=== PATIENT | male | born 1985 | race Caucasian/White ===

== ENCOUNTER 2016-10-11 15:19 | Emergency (ER) | payer SELFPAY ==
--- NOTE | 2016-10-11 15:30 | ER Document Report ---
ED Medical Screen (RME) - General Stated Complaint: COUGH,SHORTNESS OF BREATH Mode of Arrival: Ambulatory Information source: Patient Notes: Patient with cold symptoms for the past week. Patient states cough has worsened recently. Patient complains of right lateral rib. Patient complains of voice hoarseness. hx: None I have greeted and performed a rapid initial assessment of this patient. A comprehensive ED assessment and evaluation of the patient, analysis of test results and completion of the medical decision making process will be conducted by additional ED providers. TRAVEL OUTSIDE OF THE [place] IN LAST 30 DAYS: No Past Medical History Neurological Medical History: Reports: Hx Migraine Physical Exam - Vital signs Vitals: Temp Pulse Resp BP Pulse Ox 98.2 F 100 20 128/70 H 94 10/11/16 15:25 10/11/16 15:25 10/11/16 15:25 10/11/16 15:25 10/11/16 15:25 - Respiratory Respiratory status: No respiratory distress Breath sounds: Productive cough - Occasionally productive Notes: Patient with voice hoarseness Course - Vital Signs Vital signs: Temp Pulse Resp BP Pulse Ox 98.2 F 100 20 128/70 H 94 10/11/16 15:25 10/11/16 15:25 10/11/16 15:25 10/11/16 15:25 10/11/16 15:25
--- NOTE | 2016-10-11 17:54 | ER Document Report ---
ED General - General Chief Complaint: Cough Stated Complaint: COUGH,SHORTNESS OF BREATH Mode of Arrival: Ambulatory Information source: Patient Notes: Patient is a 31-year-old white male who presents with one-week history of productive cough (clear sputum), loss of voice, hoarseness, nasal congestion, pain in ribs, back pain and throat pain. He states the pain in his rib and back are worse after coughing. He states he has tried home cough medications without relief. He denies any fever, chills, wheezing, chest pain, vomiting or diarrhea. Endorses sick contact at home. He is a smoker, one pack per day. TRAVEL OUTSIDE OF THE [place] IN LAST 30 DAYS: No - Related Data Allergies/Adverse Reactions: iodine Allergy (Verified 10/11/16 15:30) tomato Allergy (Verified 10/11/16 15:30) Past Medical History - General Information source: Patient - Social History Smoking Status: Current Every Day Smoker Chew tobacco use (# tins/day): No Frequency of alcohol use: None Drug Abuse: None Family History: Reviewed & Not Pertinent Patient has suicidal ideation: No Patient has homicidal ideation: No Neurological Medical History: Reports: Hx Migraine Renal/ Medical History: Denies: Hx Peritoneal Dialysis Review of Systems - Review of Systems Constitutional: See HPI EENT: No symptoms reported Cardiovascular: No symptoms reported Respiratory: See HPI Gastrointestinal: No symptoms reported Genitourinary: No symptoms reported Male Genitourinary: No symptoms reported Musculoskeletal: No symptoms reported Skin: No symptoms reported Hematologic/Lymphatic: No symptoms reported Neurological/Psychological: No symptoms reported Physical Exam - Vital signs Vitals: Temp Pulse Resp BP Pulse Ox 98.2 F 100 20 128/70 H 94 10/11/16 15:25 10/11/16 15:25 10/11/16 15:25 10/11/16 15:25 10/11/16 15:25 Interpretation: Hypertensive - Notes Notes: PHYSICAL EXAM: CONSTITUTIONAL: Alert and oriented, well-appearing and in no acute distress. Speaking in full sentences without difficulty. HENT: Normocephalic, atraumatic. Ear canals without erythema or foreign body, TMs pearly grove with good bony landmarks. Nares clear without erythema, septal hematoma or deviation, airway patent. Oropharynx erythematous without tonsilar exudate or malocclusion. Trachea midline. Uvula midline. Moist mucous membranes. EYES: Pupils equal round and reactive to light, EOM intact. Sclera anicteric, conjunctiva are normal. No entrapment. NECK: supple without lymphadenopathy. ROM intact. HEART: Regular rate and rhythm without murmurs. LUNGS: Breath sounds equal. Scattered rhonchi noted but no wheezes, rales. Bilateral anterior ribs tender to palpation without crepitus or deformity. EXTREMITIES: Normal range of motion, no pitting edema. No cyanosis. Cap Refill < 3 seconds. SKIN: Warm and dry. Normal turgor. No rashes or lesions noted. Course - Re-evaluation Re-evalutation: 10/11/16 18:01 Patient seen and examined. Vital signs stable, no respiratory distress, patient speaking in full sentences. Voice is hoarse. Rhonchi noted bilaterally throughout but no wheezing and breath sounds are throughout. Exam consistent with laryngitis and bronchitis. Chest x-ray negative for acute infiltrate or opacity. Discussed supportive care treatments with patient including smoking cessation. Given scripts for antibiotic, cough suppressant, steroids. Discharge home in stable condition and follow-up with primary care doctor. - Vital Signs Vital signs: Temp Pulse Resp BP Pulse Ox 98.2 F 100 20 128/70 H 94 10/11/16 15:25 10/11/16 15:25 10/11/16 15:25 10/11/16 15:25 10/11/16 15:25 - Laboratory Laboratory results interpreted by nc: Rapid strep negative - Diagnostic Test Radiology reviewed: Image reviewed, Reports reviewed Radiology results interpreted by me: 10/11/16 18:01 Chest x-ray negative for acute opacity or infiltrate. Discharge - Discharge Clinical Impression: Bronchitis, Laryngitis URI (upper respiratory infection) Qualifiers: URI type: unspecified URI Qualified Code(s): J06.9 - Acute upper respiratory infection, unspecified Condition: Stable Disposition: HOME, SELF-CARE Additional Instructions: UPPER RESPIRATORY ILLNESS: You have a viral infection of the respiratory passages -- a "cold." This common infection causes nasal congestion, drainage, and often sore throat and cough. It is highly contagious. The disease usually lasts about 10 to 14 days. There is no "cure" for the viral infection -- it must run its course. If there is a complication, such as bacterial infection in the nose, sinuses, middle ear, or bronchial tubes, antibiotics may be required. The antibiotics won't affect the virus. Drink plenty of fluids. A humidifier may help. An expectorant medication or decongestant may make you more comfortable. Use acetaminophen or ibuprofen for fever or aches. See the doctor if fever persists over two days, if there is any significant worsening of your symptoms, or if you simply fail to improve as expected. BRONCHOSPASM: You have tightness in the bronchial tubes, called bronchospasm. This often occurs with bronchial infections. Allergies, inhaled chemicals, and polluted or cold air can also provoke bronchospasm. It's more likely in patients with asthma in the family. Emergency treatment of bronchospasm may include adrenaline shots or bronchodilator aerosol. You may feel lightheaded and have a rapid pulse for an hour or two. Rest and get plenty of fluids. At home, we'll treat you with a bronchodilator inhaler. Antibiotics and corticosteroids may be required for some patients. Until you recover, avoid chemical fumes, dusts, pollens, and exercising in very cold or dry air. If you smoke, stop now!! If you develop a fever, increased wheezing, chest pain, or severe shortness of breath, you should contact the doctor immediately. DECONGESTANT MEDICATION: A decongestant medicine has been prescribed. Often this medicine is combined in the same tablet with an antihistamine or expectorant. This type of medicine is helpful in treating a bad cold or sinus condition, as well as in treatment of the nasal congestion of hay fever. It is not of much benefit for lung infections. Decongestant medicines are related to stimulants. They can cause an increase in blood pressure and heart rate. Persons with heart disease and high blood pressure should not take decongestants without discussing this with the physician. If you develop palpitations, chest pain, headache, or tremors, stop the medicine and consult your physician. COUGH-SUPPRESSANT & EXPECTORANT MEDICATION: You are to use a cough medication as needed for relief of symptoms. This medicine is a combination of an expectorant (to make the mucous thinner and more easily "coughed up") and a cough suppressant (to reduce the frequency of coughing). The cough-suppressant medicine is related to narcotics. You may experience mild nausea and sleepiness. Some patients who are very sensitive to narcotics may have stomach pain from this medicine. Taking the medicine with food reduces these side effects. Do not drive or work with machinery until you know how this medicine affects you. The expectorant should have no side effects. Iodine-containing expectorants (such as organidin) should not be taken by persons with active thyroid disease unless approved by your doctor. Call the doctor if you develop shortness of breath, hives, rash, itching, lightheadedness, or severe nausea and vomiting. INHALED BRONCHODILATORS: You have received a treatment of and/or prescription for an inhaled bronchodilator -- a medication which stimulates the airways in the lung to dilate. This improves the flow of air in asthma, bronchitis, and emphysema. These medicines have some similarity to adrenaline, and can cause similar side effects: shakiness, racing heart, and a sense of nervousness. These side effects decrease with time. Contact your doctor if these side effects are severe. Do not over-use the medicine. Too-frequent use of the inhaler may make it ineffective. Call your doctor if the inhaler is not controlling your symptoms at the prescribed doses. STEROID MEDICATION: You have been given an injection of or oral medicine of the cortisone/ steroid class. This medication is used to control inflammation or allergy. Vito t is usually only given for a short period of time, until the acute process subsides. There are usually no side effects from short-term use of cortisone-like medications. Some persons feel an increased sense of well-being and are not sleepy at bedtime. Long-term use of cortisone medications is best avoided, unless required for a severe condition. If your condition does not remit, or relapses after the course of corticosteroid medication, you should consult your physician. Antibiotic Therapy You have been given an antibiotic prescription. It's important that you take all the medication, unless instructed otherwise by your physician. Failure to complete the entire course can result in relapse of your condition. Common side effects of antibiotics include nausea, intestinal cramping, or diarrhea. Women may develop vaginal yeast infections, and babies can get yeast (thrush) in the mouth following the use of antibiotics. Contact your physician if you develop significant side effects from this medication. Allergy to this antibiotic can result in hives, wheezing, faintness, or itching. If symptoms of allergy occur, stop the medication and call the doctor. USE OF ACETAMINOPHEN (Tylenol): Acetaminophen may be taken for pain relief or fever control. It's much safer than aspirin, offering a wider range of "safe" dosages. It is safe during . Some brand names are Tylenol, Panadol, Datril, Anacin 3, Tempra, and Liquiprin. Acetaminophen can be repeated every four hours. The following are maximum recommended dosages: >89 pounds or adults 650 mg to 900 mg Acetaminophen can be repeated every four hours. Maximum dose not to exceed 4000 mg a day. SMOKING: If you smoke, you should stop smoking. The tar and chemicals in cigarette smoke are harmful. Smoking has been shown to cause: emphysema chronic bronchitis lung cancer mouth and throat cancer stomach and pancreas cancer premature aging defects In addition, smoking increases ear and lung infections in children of smokers. FOLLOW-UP CARE: If you have been referred to a physician for follow-up care, call the physician s office for an appointment as you were instructed or within the next two days. If you experience worsening or a significant change in your symptoms, notify the physician immediately or return to the Emergency Department at any time for re-evaluation. Prescriptions: Guaifenesin/Codeine Phosphate [Guaifenesin-Codeine Syrup] 5 ml PO QHS #30 ml Guaifenesin/D-Methorphan Hb [Guaifenesin-Dextromethorph Tab] 1 each PO Q12HP PRN #8 tab.sr.12h PRN Reason: Cough Albuterol Sulfate [Proair HFA Inhalation Aerosol 8.5 gm MDI] 2 puff IH Q4H PRN # 1 mdi PRN Reason: Azithromycin [Zithromax 250 mg Tablet] 250 mg PO ASDIR PRN #6 tablet PRN Reason: Naproxen [Naprosyn 250 mg Tablet] 250 mg PO DAILY PRN #14 tablet PRN Reason: Prednisone [Deltasone 20 mg Tablet] 3 tab PO DAILY 5 Days Forms: Elevated Blood Pressure, Smoking Cessation Education, Return to Work
[2016-10-11 18:09] VITALS: BP 142/83
== END 2016-10-11 18:13 | disposition home or self-care (01) ==
LOC: ER 15:19
DX: J04.0 Acute laryngitis (principal); J40 Bronchitis, not specified as acute or chronic; R09.81 Nasal congestion; R07.81 Pleurodynia; M54.9 Dorsalgia, unspecified; R07.0 Pain in throat; R09.89 Other specified symptoms and signs involving the circulatory and respiratory systems; F17.200 Nicotine dependence, unspecified, uncomplicated
CPT/HCPCS: 71020; 87070; 87077; 87880; 99283

== ENCOUNTER 2016-11-27 04:56 | Emergency (ER) | payer SELFPAY ==
[2016-11-27] MEDS ORDERED: DIPHENHYDRAMINE HCL 50 MG/ML VIAL IV ONE (05:30)
[2016-11-27] MEDS ORDERED: METOCLOPRAMIDE HCL INJ/PF 10 MG/2 ML SDV IM ONE (05:30)
[2016-11-27] MEDS ORDERED: KETOROLAC TROMETHAMINE 60 MG/2 ML SDV IM ONE (05:30)
--- NOTE | 2016-11-27 06:11 | ER Document Report ---
ED Headache - General Chief Complaint: Headache Stated Complaint: HEADACHE Mode of Arrival: Medic Information source: Patient, Relative TRAVEL OUTSIDE OF THE [place] IN LAST 30 DAYS: No - HPI Patient complains to provider of: Headache Notes: Patient arrives with complaints of headache. He states that he has had this headache for the last 3 days. Patient has a history of migraines, he states this feels like his normal migraines aside from the length of time. He denies any falls or head injuries. He denies any blood thinners. He denies any blurred or loss vision. He does complain of some photophobia and nausea associated with this. No vomiting or diarrhea. No chest pain or shortness of breath. No neck stiffness. No rash. He states that occasionally his right hand feels tingly but he denies any actual numbness or weakness. He denies any numbness to her weakness to the legs. States that the headache is been constant although varying in intensity. States that it started on the left side of his head and now is on the right side of his head. Not positional. It is worse if he coughs. He was seen 2 years ago for headache and had a head CT at that time which was unremarkable. This was not a sudden onset thunderclap headache, gradual headache that feels similar to prior migraines. - Related Data Allergies/Adverse Reactions: iodine Allergy (Verified 10/11/16 15:30) tomato Allergy (Verified 10/11/16 15:30) Past Medical History - Social History Smoking Status: Never Smoker Frequency of alcohol use: None Drug Abuse: Marijuana Family History: Reviewed & Not Pertinent Neurological Medical History: Reports: Hx Migraine Renal/ Medical History: Denies: Hx Peritoneal Dialysis Surgical Hx: Negative - Immunizations Hx Diphtheria, Pertussis, Tetanus Vaccination: Yes Review of Systems - Review of Systems -: Yes All other systems reviewed and negative Physical Exam - Vital signs Vitals: Temp Pulse Resp BP Pulse Ox 98.3 F 79 19 137/90 H 99 11/27/16 05:03 11/27/16 05:03 11/27/16 05:03 11/27/16 05:03 11/27/16 05:03 - Notes Notes: GENERAL: alert, cooperative, nontoxic, no distress. HEAD: normocephalic, atraumatic EYES: conjunctiva pink without discharge, no external redness or swelling. Pupils are equal, round, reactive to light. EARS: no external swelling, no external redness NOSE: atraumatic, no external swelling MOUTH/THROAT: mucous membranes moist and pink, posterior pharynx without erythema, swelling, exudate. No trismus or drooling. NECK: soft, supple, full range of motion, no meningismus. CHEST: no distress, lungs clear and equal throughout. No wheezing, rales, rhonchi. CARDIAC: regular rate and rhythm, no murmur, normal capillary refill, normal pulses. No peripheral edema noted. BACK: full range of motion, no CVA tenderness. EXTREMITIES: full range of motion of all extremities. No redness, no swelling. NEURO: alert and oriented 3, cranial nerves II through XII are grossly intact. Upper and lower extremities are equal throughout. Normal sensation. No focal deficits, full range of motion of all extremities. normal finger to nose. NIH stroke score of 0. PYSCH: appropriate mood, affect. Patient is cooperative. SKIN: pink, warm, dry, no rash. Course - Re-evaluation Re-evalutation: 11/27/16 06:09 Patient's resting comfortably at this time nontoxic with stable vitals. The patient has a history of migraines. This headache is similar to his prior migraines aside from the length of time that he had it. It's been constant. Was not a sudden onset, thunderclap headache. He's had no fever. No neck stiffness. No signs of meningitis. No Blood Thinners. He Has Normal Neurological Exam. Patient Was Given Migraine Cocktail Medications and Will Be Discharged Home with Instructions to Go Lay down in a Dark Quiet Room and Rest. Follow-Up with His Doctor If Not Better in the Next Few Days, Follow-Up Sooner for Worsening Headache, Numbness, Tingling, Weakness, Further Concerns. The patient is noted to have elevated blood pressure during today's emergency department visit. The patient was informed of this finding. The patient was instructed that this may be related to pre-hypertension and requires further evaluation with a primary care provider. The patient has no hypertensive symptoms at this time. The patient's emergency department workup and current diagnosis were explained to the patient and or family. Follow-up instructions were provided. Medications if prescribed were discussed. Instructions for when to return to the emergency department including specific worrisome symptoms were discussed with the patient and/or family. - Vital Signs Vital signs: Temp Pulse Resp BP Pulse Ox 98.3 F 79 19 137/90 H 99 11/27/16 05:03 11/27/16 05:03 11/27/16 05:03 11/27/16 05:03 11/27/16 05:03 Discharge - Discharge Clinical Impression: Headache Qualifiers: Headache type: unspecified Headache chronicity pattern: acute headache Intractability: not intractable Qualified Code(s): R51 - Headache Condition: Stable Disposition: HOME, SELF-CARE Instructions: Headache ([facility]) Additional Instructions: Tylenol and Motrin as needed for pain. Drink plenty of fluids. Follow-up with your doctor if not better in 3 days, sooner for increased pain, fever, neck stiffness, weakness, or any further concerns. Your blood pressure was elevated during today's visit. Have this rechecked with your doctor. Forms: Elevated Blood Pressure
[2016-11-27 06:37] VITALS: BP 138/67
== END 2016-11-27 06:36 | disposition home or self-care (01) ==
LOC: ER 04:56
DX: R51 Headache (principal); H53.149 Visual discomfort, unspecified; R11.0 Nausea; R03.0 Elevated blood-pressure reading, without diagnosis of hypertension; R20.2 Paresthesia of skin; Z86.69 Personal history of other diseases of the nervous system and sense organs; Z91.018 Allergy to other foods
CPT/HCPCS: 99283; 96372; J1885; J2765

== ENCOUNTER 2017-01-30 16:54 | Emergency (ER) | payer SELFPAY ==
[2017-01-30 17:02] VITALS: BP 150/82
[2017-01-30] MEDS ORDERED: HYDROCODONE/ACETAMINOPHEN 5-325 MG 6 TAB/DSPK PO PRN (19:49)
[2017-01-30] MEDS ORDERED: CEPHALEXIN 500 MG CAPSULE PO ONE (19:49)
[2017-01-30] MEDS ORDERED: SULFAMETHOXAZOLE/TRIMETHOPRIM 800-160 MG TABLET PO ONE (19:49)
--- NOTE | 2017-01-30 19:49 | ER Document Report ---
HPI - HPI Patient complains to provider of: abscess left side of face Onset: Other - 2 days Onset/Duration: Persistent Quality of pain: Achy Severity: Moderate Pain Level: 3 Context: Patient presents to emergency department with complaints of abscess to the left side of his face. Patient reports it started approximately 2 days ago. His friend at the bedside reports they tried popping it and poking it with a pin but unable to drain it. He did report some bloody drainage with a very little bit of pus came out. Denies history of MRSA. Reports he shaved himself 2 days ago with soap and the site started out looking like a pimple. Denies fever vomiting diarrhea. Associated Symptoms: None Exacerbated by: Denies Relieved by: Denies Similar symptoms previously: No Recently seen / treated by doctor: No - DERM Skin Color: Normal Past Medical History - General Information source: Patient - Social History Smoking Status: Current Every Day Smoker Cigarette use (# per day): Yes Frequency of alcohol use: None Drug Abuse: Marijuana Family History: Reviewed & Not Pertinent Patient has suicidal ideation: No Patient has homicidal ideation: No Neurological Medical History: Reports: Hx Migraine Renal/ Medical History: Denies: Hx Peritoneal Dialysis Surgical Hx: Negative - Immunizations Hx Diphtheria, Pertussis, Tetanus Vaccination: Yes Vertical Provider Document - CONSTITUTIONAL Agree With Documented VS: Yes Exam Limitations: No Limitations General Appearance: WD/WN, Mild Distress - winces when site palpated - INFECTION CONTROL TRAVEL OUTSIDE OF THE [place] IN LAST 30 DAYS: No - HEENT HEENT: Atraumatic, Normocephalic. negative: Conjuctival Injection, Pharyngeal Erythema Notes: left side jaw with abscess ~ 3cm of erythema, induration. opens mouth wide, clear voice - NECK Neck: Normal Inspection, Supple. negative: Lymphadenopathy-Left, Lymphadenopathy-Right - RESPIRATORY Respiratory: Breath Sounds Normal, No Respiratory Distress O2 Sat by Pulse Oximetry: 96 - CARDIOVASCULAR Cardiovascular: Regular Rate - MUSCULOSKELETAL/EXTREMETIES Musculoskeletal/Extremeties: MARIEL WATT - NEURO Level of Consciousness: Awake, Alert, Appropriate Motor/Sensory: No Motor Deficit - DERM Integumentary: Warm, Dry Adult Front & Back Diagram: 1 - 3 cm abscess Course - Re-evaluation Re-evalutation: 01/30/17 19:46 Patient instructed on I&D. Verbalized understanding. Declined pain medication. 01/30/17 20:23 Tolerated I&D well. Patient instructed on signs and symptoms of allergic reaction to Septra or Keflex. Patient was also instructed to stop taking medications &return here for any allergic reaction. He was instructed on signs and symptoms of increasing infection. He was instructed to return to the ED for increasing or worsening infection. - Vital Signs Vital signs: Temp Pulse Resp BP Pulse Ox 98.8 F 83 14 150/82 H 96 01/30/17 17:01 01/30/17 17:01 01/30/17 17:01 01/30/17 17:01 01/30/17 17:01 Procedures - Incision and Drainage left side face Type: Simple Anesthetic type: 1% Lidocaine Blade size: 11 I&D procedure: Shurclens applied Incision Method: Incision made by scalpel Amount/type of drainage: small amount whitish bloody discharge Adult Head Front/Back picture: 1 - Horizontal incision made area probed small amount of whitish bloody discharge obtained Discharge - Discharge Clinical Impression: Facial abscess Condition: Stable Disposition: HOME, SELF-CARE Instructions: Trimethoprim-Sulfa ([facility]), Abscess ([facility]), Oral Narcotic Medication ([facility]), Cephalexin ([facility]) Additional Instructions: *You have been treated for an abscess with incision and drainage *Take medication as prescribed *Monitor the site for signs of increasing infection such as increasing pain, redness, swelling, warmth *Keep the area clean, do not poke the area *Follow up with a primary care provider within one week for recheck *Return to ED for signs of increasing infection, worsening condition, changes, needs Monitor your blood pressure. Your blood pressure was elevated today. This may be because you were anxious, in pain or because you need medication. It is important to follow up with your primary care provider for full evaluation. Prescriptions: Cephalexin Monohydrate [Keflex 250 Mg Capsule] 250 mg PO QID #20 capsule Sulfamethoxazole/Trimethoprim [Bactrim Ds Tablet] 1 each PO BID #20 tablet Forms: Elevated Blood Pressure
== END 2017-01-30 20:46 | disposition home or self-care (01) ==
LOC: ER 16:54
PROC: 0H91XZZ Drainage of Face Skin, External Approach (ICD-10-PCS; principal; 2017-01-30)
DX: L02.01 Cutaneous abscess of face (principal); F17.210 Nicotine dependence, cigarettes, uncomplicated
CPT/HCPCS: 87070; 87075; 87077; 87186; 87205; 99283

== ENCOUNTER 2017-02-21 18:01 | Emergency (ER) | payer SELFPAY ==
[2017-02-21 18:10] VITALS: BP 132/90
[2017-02-21] MEDS ORDERED: METOCLOPRAMIDE HCL INJ/PF 10 MG/2 ML SDV IV ONE (18:49)
[2017-02-21] MEDS ORDERED: KETOROLAC TROMETHAMINE INJ/PF 30 MG/1 ML SDV IV ONE (18:49)
[2017-02-21] MEDS ORDERED: DIPHENHYDRAMINE HCL 50 MG/ML VIAL IV ONE (18:49)
[2017-02-21] MEDS ORDERED: NORMAL SALINE 1000 ML 1,000 ML IV PRN (18:49)
--- NOTE | 2017-02-21 18:51 | ER Document Report ---
ED Medical Screen (RME) - General Chief Complaint: Headache Stated Complaint: HEADACHE Time Seen by Provider: 02/21/17 18:42 Mode of Arrival: Ambulatory Information source: Patient, [facility] Records TRAVEL OUTSIDE OF THE [place] IN LAST 30 DAYS: No - HPI Onset: Other - days Onset/Duration: Gradual, Constant Quality of pain: Dull Associated Symptoms: Nausea Exacerbated by: Denies Relieved by: Denies Similar symptoms previously: Yes Recently seen / treated by doctor: No Notes: 02/21/17 18:50 Patient is a 31-year-old male with history of headaches since childhood. Patient does not see neurology. Patient is on no meds for headaches. Patient presents with a typical migraine headache for the last several days. Patient has been using [id number] medications without improvement. Nausea but no vomiting. No neck pain. No fevers or chills. No visual changes. - Related Data Allergies/Adverse Reactions: iodine Allergy (Verified 01/30/17 17:01) tomato Allergy (Verified 01/30/17 17:01) Past Medical History - General Information source: Patient, [facility] Records - Social History Chew tobacco use (# tins/day): No Frequency of alcohol use: None Drug Abuse: Marijuana Neurological Medical History: Reports: Hx Migraine Renal/ Medical History: Denies: Hx Peritoneal Dialysis - Immunizations Hx Diphtheria, Pertussis, Tetanus Vaccination: Yes Review of Systems - Review of Systems Gastrointestinal: Nausea Neurological/Psychological: Headaches -: Yes All other systems reviewed and negative Physical Exam - Vital signs Vitals: Temp Pulse Resp BP Pulse Ox 98 F 79 16 132/90 H 96 02/21/17 18:07 02/21/17 18:07 02/21/17 18:07 02/21/17 18:07 02/21/17 18:07 Interpretation: Normal - General General appearance: Appears well, Alert - HEENT Head: Normocephalic, Atraumatic Eyes: Normal Pupils: PERRL - Respiratory Respiratory status: No respiratory distress Chest status: Nontender Breath sounds: Normal Chest palpation: Normal - Cardiovascular Rhythm: Regular Heart sounds: Normal auscultation Murmur: No - Abdominal Inspection: Normal Distension: No distension Bowel sounds: Normal Tenderness: Nontender Organomegaly: No organomegaly - Back Back: Normal, Nontender - Extremities General upper extremity: Normal inspection, Nontender, Normal color, Normal ROM , Normal temperature General lower extremity: Normal inspection, Nontender, Normal color, Normal ROM , Normal temperature, Normal weight bearing. No: Chris's sign - Neurological Neuro grossly intact: Yes Cognition: Normal Orientation: AAOx4 [place] Coma Scale Eye Opening: Spontaneous [place] Coma Scale Verbal: Oriented [place] Coma Scale Motor: Obeys Commands [place] Coma Scale Total: 15 Speech: Normal Motor strength normal: LUE, RUE, LLE, RLE Sensory: Normal - Psychological Associated symptoms: Normal affect, Normal mood - Skin Skin Temperature: Warm Skin Moisture: Dry Skin Color: Normal Course - Re-evaluation Re-evalutation: 02/21/17 19:37 Patient reports he is feeling much better. He is ready for discharge. Will prescribe Fioricet for his headache. Discussed need for primary care/neurology follow-up. - Vital Signs Vital signs: Temp Pulse Resp BP Pulse Ox 98 F 79 16 132/90 H 96 02/21/17 18:07 02/21/17 18:07 02/21/17 18:07 02/21/17 18:07 02/21/17 18:07 Doctor's Discharge - Discharge Clinical Impression: Headache Condition: Good Disposition: HOME, SELF-CARE Instructions: Headache ([facility]) Additional Instructions: Follow-up with your primary care doctor. Return to the emergency department if worse or for any other problems. Prescriptions: Butalb/Acetaminophen/Caffeine [Fioricet 50-300-40 mg Capsule] 1 - 2 cap PO Q4 PRN #30 cap PRN Reason: headache
== END 2017-02-21 19:38 | disposition home or self-care (01) ==
LOC: ER 18:01
DX: R51 Headache (principal); R11.0 Nausea
CPT/HCPCS: 99283; 96361; 96374; 96375; J1200; J1885; J2765; J7030

== ENCOUNTER 2017-08-04 05:51 | Emergency (ER) | payer SELFPAY ==
[2017-08-04] MEDS ORDERED: PROCHLORPERAZINE EDISYLATE INJ 10 MG/2 ML VIAL IV ONE (06:15)
[2017-08-04] MEDS ORDERED: DIPHENHYDRAMINE HCL 50 MG/ML VIAL IV ONE (06:15)
[2017-08-04] MEDS ORDERED: NORMAL SALINE 1000 ML 1,000 ML IV ONE (06:15)
[2017-08-04] MEDS ORDERED: DIPHENHYDRAMINE HCL 50 MG/ML VIAL IM ONE (06:38)
[2017-08-04] MEDS ORDERED: KETOROLAC TROMETHAMINE 60 MG/2 ML SDV IM ONE (06:38)
[2017-08-04] MEDS ORDERED: PROCHLORPERAZINE EDISYLATE INJ 10 MG/2 ML VIAL IM ONE (06:38)
--- NOTE | 2017-08-04 06:38 | ER Document Report ---
ED General - General Stated Complaint: HEADACHE Time Seen by Provider: 08/04/17 06:10 Mode of Arrival: Medic Information source: Patient, Relative Notes: 32-year-old male history of migraine headaches presents with complaints of migraine headache. He notes that he is not sure what stimulates these headaches however just prior to arrival patient went into the bathroom and it was very warm and he felt his headaches start, patient notes he had no neurological deficits no weakness no numbness. Patient has not seen a neurologist for these migraines but has been treated in the emergency department multiple times. TRAVEL OUTSIDE OF THE [place] IN LAST 30 DAYS: No - HPI Onset: Just prior to arrival Onset/Duration: Sudden, Better - Patient notes headache has improved significantly prior to my presentation Quality of pain: Achy Severity: Mild Pain Level: 1 Associated symptoms: Headache Exacerbated by: Other - Heat Relieved by: Denies Similar symptoms previously: Yes Recently seen / treated by doctor: Yes - Related Data Allergies/Adverse Reactions: iodine Allergy (Verified 01/30/17 17:01) tomato Allergy (Verified 01/30/17 17:01) Past Medical History - Social History Smoking Status: Current Every Day Smoker Cigarette use (# per day): Yes Chew tobacco use (# tins/day): No Smoking Education Provided: No Family History: Reviewed & Not Pertinent Neurological Medical History: Reports: Hx Migraine Renal/ Medical History: Denies: Hx Peritoneal Dialysis - Immunizations Hx Diphtheria, Pertussis, Tetanus Vaccination: Yes Review of Systems - Review of Systems Notes: REVIEW OF SYSTEMS: CONSTITUTIONAL : Denies fever, chills, or sweats. Denies recent illness. EENT: Denies eye, ear, throat, or mouth pain or symptoms. Denies nasal or sinus congestion or discharge. Denies throat, tongue, or mouth swelling or difficulty swallowing. CARDIOVASCULAR: Denies chest pain. Denies palpitations or racing or irregular heart beat. Denies ankle edema. RESPIRATORY: Denies cough, cold, or chest congestion. Denies shortness of breath, difficulty breathing, or wheezing. GASTROINTESTINAL: Denies abdominal pain or distention. Denies nausea, vomiting , or diarrhea. Denies blood in vomitus, stools, or per rectum. Denies black, tarry stools. Denies constipation. GENITOURINARY: Denies difficulty urinating, painful urination, burning, frequency, blood in urine, or discharge. MUSCULOSKELETAL: Denies back or neck pain or stiffness. Denies joint pain or swelling. SKIN: Denies rash, lesions or sores. HEMATOLOGIC : Denies easy bruising or bleeding. LYMPHATIC: Denies swollen, enlarged glands. NEUROLOGICAL: Admits to headache PSYCHIATRIC: Denies anxiety or stress. Denies depression, suicidal ideation, or homicidal ideation. ALL OTHER SYSTEMS REVIEWED AND NEGATIVE. Dictation was performed using [employer] voice recognition software PHYSICAL EXAMINATION: GENERAL: Well-appearing, well-nourished and in no acute distress. Poor hygiene HEAD: Atraumatic, normocephalic. EYES: Pupils equal round and reactive to light, extraocular movements intact, sclera anicteric, conjunctiva are normal. ENT: Nares patent, oropharynx clear without exudates. Moist mucous membranes. NECK: Normal range of motion, supple without lymphadenopathy LUNGS: Breath sounds clear to auscultation bilaterally and equal. No wheezes rales or rhonchi. HEART: Regular rate and rhythm without murmurs ABDOMEN: Soft, nontender, nondistended abdomen. No guarding, no rebound. No masses appreciated. Musculoskeletal: Normal range of motion, no pitting or edema. No cyanosis. NEUROLOGICAL: Cranial nerves grossly intact. Normal speech, normal gait. Normal sensory, motor exams PSYCH: Normal mood, normal affect. SKIN: Warm, Dry, normal turgor, no rashes or lesions noted. Course - Re-evaluation Re-evalutation: 08/04/17 07:20 Patient's examination is quite benign, he is watching television and playing on his phone. He notes his headache is now 2 out of 10 prior to any medications, he did come by EMS for this migraine headache. I did put him for IV fluids and IV medication patient requests IM as he wishes to go home. I discussed risks and benefits of treatment without further evaluation patient states he understands and that this is exactly like his previous headache After performing a Medical Screening Examination, I estimate there is LOW risk for ACUTE GLAUCOMA, TEMPORAL ARTERITIS, MENINGITIS, INCRANIAL HEMORRHAGE, or ISCHEMIC STROKE thus I consider the discharge disposition reasonable. I have reevaluated this patient multiple times and no significant life threatening changes are noted. The patient and I have discussed the diagnosis and risks, and we agree with discharging home with close follow-up with the understanding that symptoms and presentations can change. We also discussed returning to the Emergency Department immediately if new or worsening symptoms occur. We have discussed the symptoms which are most concerning (e.g., changing or worsening symptoms, new numbness or weakness, vomiting, fever) that necessitate immediate return. Discharge - Discharge Clinical Impression: Migraine headache Qualifiers: Migraine type: unspecified Status migrainosus presence: without status migrainosus Intractability: not intractable Qualified Code(s): G43.909 - Migraine, unspecified, not intractable, without status migrainosus Condition: Stable Disposition: HOME, SELF-CARE Instructions: Migraine Headache ([facility]) Referrals: MARLENA FRANK MD [ACTIVE STAFF] - Follow up in 3-5 days
[2017-08-04 07:36] VITALS: BP 133/75
== END 2017-08-04 07:34 | disposition home or self-care (01) ==
LOC: ER 05:51
DX: G43.909 Migraine, unspecified, not intractable, without status migrainosus (principal); F17.210 Nicotine dependence, cigarettes, uncomplicated
CPT/HCPCS: 99283; 96372; J1200; J1885; J0780

== ENCOUNTER 2018-01-26 04:43 | Emergency (ER) | payer SELFPAY ==
[2018-01-26 04:48] VITALS: BP 141/91
[2018-01-26] MEDS ORDERED: DIPHENHYDRAMINE HCL 50 MG/ML VIAL IM ONE (05:16)
[2018-01-26] MEDS ORDERED: KETOROLAC TROMETHAMINE 60 MG/2 ML SDV IM ONE (05:19)
[2018-01-26] MEDS ORDERED: PROCHLORPERAZINE EDISYLATE INJ 10 MG/2 ML VIAL IM ONE (05:20)
[2018-01-26] MEDS ORDERED: ONDANSETRON ODT 4 MG TAB (6 TAB/ER DISP) PO PRN (05:59)
--- NOTE | 2018-01-26 05:59 | ER Document Report ---
ED Headache - General Chief Complaint: Headache Stated Complaint: HEADACHE Time Seen by Provider: 01/26/18 04:49 Mode of Arrival: Ambulatory Information source: Patient Notes: 32-year-old male patient presenting with complaint of headache. Patient reports that he is out of his headache medications. Patient reports that this headache has been ongoing for 2 days, had a gradual onset and has associated nausea. Patient reports that "the usual headache cocktail" that we give him works for him. Patient reports past medical history of migraines, stomach ulcers, diabetes. Patient denies any surgical history. TRAVEL OUTSIDE OF THE [place] IN LAST 30 DAYS: No - Related Data Allergies/Adverse Reactions: iodine Allergy (Verified 01/30/17 17:01) tomato Allergy (Verified 01/30/17 17:01) Past Medical History - General Information source: Patient - Social History Smoking Status: Current Every Day Smoker Chew tobacco use (# tins/day): No Frequency of alcohol use: None Drug Abuse: Marijuana Family History: Reviewed & Not Pertinent Patient has suicidal ideation: No Patient has homicidal ideation: No Neurological Medical History: Reports: Hx Migraine Endocrine Medical History: Reports: Hx Diabetes Mellitus Type 2 Renal/ Medical History: Denies: Hx Peritoneal Dialysis GI Medical History: Reports: Hx Ulcer Surgical Hx: Negative - Immunizations Hx Diphtheria, Pertussis, Tetanus Vaccination: Yes Review of Systems - Review of Systems Constitutional: See HPI EENT: No symptoms reported Cardiovascular: No symptoms reported Respiratory: No symptoms reported Gastrointestinal: No symptoms reported Genitourinary: No symptoms reported Male Genitourinary: No symptoms reported Musculoskeletal: No symptoms reported Skin: No symptoms reported Hematologic/Lymphatic: No symptoms reported Neurological/Psychological: No symptoms reported Physical Exam - Vital signs Vitals: Temp Pulse Resp BP Pulse Ox 97.7 F 79 16 141/91 H 96 01/26/18 04:47 01/26/18 04:47 01/26/18 04:47 01/26/18 04:47 01/26/18 04:47 - Notes Notes: PHYSICAL EXAMINATION: GENERAL: Well-appearing, well-nourished and in no acute distress. HEAD: Atraumatic, normocephalic. EYES: Pupils equal round and reactive to light, extraocular movements intact, sclera anicteric, conjunctiva are normal. ENT: Nares patent, oropharynx clear without exudates. Moist mucous membranes. NECK: Normal range of motion, supple without lymphadenopathy LUNGS: Breath sounds clear to auscultation bilaterally and equal. No wheezes rales or rhonchi. HEART: Regular rate and rhythm without murmurs ABDOMEN: Soft, nontender, nondistended abdomen. No guarding, no rebound. No masses appreciated. Musculoskeletal: Normal range of motion, no pitting or edema. No cyanosis. NEUROLOGICAL: Cranial nerves grossly intact. Normal speech, normal gait. Normal sensory, motor exams PSYCH: Normal mood, normal affect. SKIN: Warm, Dry, normal turgor, no rashes or lesions noted. Course - Re-evaluation Re-evalutation: 32-year-old nontoxic appearing male presenting with his typical migraine symptoms. Patient denies any fevers. Patient will be treated with Benadryl, Toradol and Compazine IM and will be reevaluated. Patient reports complete resolution of his headache after administration of medications. Patient will be discharged home. Patient will be given dispense pack of Zofran in case patient Does experience nausea again with his headache. - Vital Signs Vital signs: Temp Pulse Resp BP Pulse Ox 97.7 F 79 16 141/91 H 96 01/26/18 04:47 01/26/18 04:47 01/26/18 05:06 01/26/18 04:47 01/26/18 04:47 Discharge - Discharge Clinical Impression: Nausea Migraine Qualifiers: Migraine type: unspecified Status migrainosus presence: without status migrainosus Intractability: not intractable Qualified Code(s): G43.909 - Migraine, unspecified, not intractable, without status migrainosus Condition: Stable Disposition: HOME, SELF-CARE Additional Instructions: Migraine Headache The physician feels that your symptoms are due to a migraine attack. Migraines are caused by changes in the blood vessels of the head. Arteries go into spasm, often causing warning symptoms that a headache may begin soon. As the spasm goes away, the vessels dilate and throb, causing the pounding pain of a migraine headache. Migraines often cause nausea and vomiting. The treatment of headaches varies with severity and cause of pain. Not all headaches need pain shots -- in fact, there is evidence that using narcotics for headaches may make them worse in the long run. The physician will determine the therapy that's in your best interest for this particular headache. Medications are available that may prevent migraines, or stop them as they first occur. If one medication is not helpful, try another. If migraines are frequent, be patient -- follow the doctor's recommendations. Call the physician if you are worsening, or if new symptoms arise. Nausea or Vomiting, Nonspecific Vomiting (or nausea without vomiting) can be caused by many different problems. Of course, it can mean that something's wrong with the stomach, such as "stomach flu," ulcers, or inflammation. But it can also be a symptom of a problem that has nothing to do with the stomach or intestines. Vomiting is common with severe headaches, earaches, and tonsillitis. We see it with pneumonia or heart attacks. Drugs can cause nausea. Many abdominal problems cause vomiting; for example, gallstones, kidney stones, pancreatitis, and intestinal obstruction (blocked bowels). In most cases, curing the vomiting depends on fixing the problem that caused it. For temporary relief, we may use an anti-nausea medicine. For home use, we can prescribe suppositories, chewable pills, pills that dissolve in the mouth, or liquid anti-nausea drugs. If the vomiting seems to be caused by a problem in the stomach, acid-suppressing drugs may be prescribed as well. It's important to avoid dehydration. Sip clear liquids. Take increasing amounts of fluid over the first 24 hours. Then start small amounts of bland foods (such as dry toast, applesauce, mashed potato). Avoid aspirin, tobacco, and alcohol. Gradually resume your usual diet. If the vomiting worsens, if the problem that's making you vomit worsens, or if there's evidence of bleeding in the stomach (such as black, tarry stool, bloody or black vomit, or lightheadedness), you should return immediately. Call your doctor if you aren't improved in 24 to 36 hours. Prescriptions: Butalb/Acetaminophen/Caffeine [Fioricet (50-325-40 mg) Tablet] 1 tab PO Q4HP PRN #30 tab PRN Reason:
== END 2018-01-26 06:10 | disposition home or self-care (01) ==
LOC: ER 04:43
DX: G43.909 Migraine, unspecified, not intractable, without status migrainosus (principal); R11.0 Nausea; F17.200 Nicotine dependence, unspecified, uncomplicated; E11.9 Type 2 diabetes mellitus without complications
CPT/HCPCS: 99284; 96372; J1200; J1885; J0780

== ENCOUNTER 2018-03-31 22:13 | Emergency (ER) | payer SELFPAY ==
[2018-03-31] MEDS ORDERED: IPRATROPIUM BROMIDE 0.02% NEB 0.5 MG/2.5 ML AMPUL NEB ONE (23:01)
[2018-03-31] MEDS ORDERED: ALBUTEROL SULFATE 0.083% NEB 2.5 MG/3 ML AMPUL NEB ONE (23:01)
--- NOTE | 2018-03-31 23:01 | ER Document Report ---
ED Medical Screen (RME) - General Chief Complaint: Breathing Difficulty Stated Complaint: COUGH,CHEST CONGESTION Time Seen by Provider: 03/31/18 22:56 Notes: Patient presents with 3 months of cough congestion. States that his significant other who is with him made him finally come to the hospital. 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 He is a daily smoker denies any drug use other than marijuana. He states that his cough is sometimes productive with yellow to white sputum. He has not taken anything for his cough and he has not been evaluated for his cough. Denies any history of tuberculosis or tuberculosis exposure. When asked if he has any known medical problems he states he probably has many psychiatric problems including depression but is not actively trying to harm himself. I have greeted and performed a rapid initial assessment of this patient. A comprehensive ED assessment and evaluation of the patient, analysis of test results and completion of the medical decision making process will be conducted by additional ED providers. PHYSICAL EXAMINATION: GENERAL: Well-appearing, well-nourished and in no acute distress, but disheveled. HEAD: Atraumatic, normocephalic. EYES: Pupils equal round extraocular movements intact, conjunctiva are normal. ENT: Nares patent NECK: Normal range of motion LUNGS: Diffuse wheezing bilateral lung pulliam Musculoskeletal: Normal range of motion NEUROLOGICAL: Normal speech, normal gait. PSYCH: Pleasant TRAVEL OUTSIDE OF THE [place] IN LAST 30 DAYS: No - Related Data Allergies/Adverse Reactions: iodine Allergy (Verified 01/30/17 17:01) tomato Allergy (Verified 01/30/17 17:01) Past Medical History Neurological Medical History: Reports: Hx Migraine Endocrine Medical History: Reports: Hx Diabetes Mellitus Type 2 Renal/ Medical History: Denies: Hx Peritoneal Dialysis GI Medical History: Reports: Hx Ulcer - Immunizations Hx Diphtheria, Pertussis, Tetanus Vaccination: Yes Physical Exam - Vital signs Vitals: Temp Pulse Resp BP Pulse Ox 99.4 F 78 24 H 141/79 H 96 03/31/18 22:23 03/31/18 22:23 03/31/18 22:23 03/31/18 22:23 03/31/18 22:23 Course - Vital Signs Vital signs: Temp Pulse Resp BP Pulse Ox 99.4 F 78 24 H 141/79 H 96 03/31/18 22:23 03/31/18 22:23 03/31/18 22:23 03/31/18 22:23 03/31/18 22:23
[2018-04-01] MEDS ORDERED: METHYLPREDNISOLONE INJ 125 MG/2 ML SDV IV ONE (00:04)
--- NOTE | 2018-04-01 00:05 | ER Document Report ---
ED Respiratory Problem - General Chief Complaint: Breathing Difficulty Stated Complaint: COUGH,CHEST CONGESTION Time Seen by Provider: 03/31/18 22:56 Notes: Patient is a 32-year-old smoker that comes emergency department for chief complaint of cough with sputum production, difficulty breathing, and wheezing. He has had difficulty breathing for about 2 months now. He states he has worsened over the past few days and his made him come to the emergency department. He denies fever or chills, nausea or vomiting, chest pain. He takes no daily medications other than using an old inhaler which she states did help a lot. TRAVEL OUTSIDE OF THE [place] IN LAST 30 DAYS: No - Related Data Allergies/Adverse Reactions: iodine Allergy (Verified 01/30/17 17:01) tomato Allergy (Verified 01/30/17 17:01) Past Medical History - General Information source: Patient - Social History Smoking Status: Current Every Day Smoker Smoking Education Provided: Yes - <3 min Drug Abuse: None Lives with: Family Family History: Reviewed & Not Pertinent Neurological Medical History: Reports: Hx Migraine Renal/ Medical History: Denies: Hx Peritoneal Dialysis GI Medical History: Reports: Hx Ulcer Surgical Hx: Negative - Immunizations Hx Diphtheria, Pertussis, Tetanus Vaccination: Yes Review of Systems - Review of Systems Constitutional: No symptoms reported EENT: No symptoms reported Cardiovascular: No symptoms reported Respiratory: See HPI Gastrointestinal: No symptoms reported Genitourinary: No symptoms reported Male Genitourinary: No symptoms reported Musculoskeletal: No symptoms reported Skin: No symptoms reported Hematologic/Lymphatic: No symptoms reported Neurological/Psychological: No symptoms reported Physical Exam - Vital signs Vitals: Temp Pulse Resp BP Pulse Ox 99.4 F 78 24 H 141/79 H 96 03/31/18 22:23 03/31/18 22:23 03/31/18 22:23 03/31/18 22:23 03/31/18 22:23 - Notes Notes: GENERAL: Alert, interacts well. No acute distress. HEAD: Normocephalic, atraumatic. EYES: Pupils equal, round, and reactive to light. Extraocular movements intact. ENT: Oral mucosa moist, tongue midline. [Nares patent, no nasal septal hematoma , TM's intact.] NECK: Full range of motion. Supple. Trachea midline. LUNGS: Mild tachypnea, expiratory wheezes throughout, no rales or rhonchi. HEART: Regular rate and rhythm. No murmur ABDOMEN: Soft, non-tender. Non-distended. Bowel sounds present in all 4 quadrants. EXTREMITIES: Moves all 4 extremities spontaneously. No edema, normal radial and dorsalis pedis pulses bilaterally. No cyanosis. BACK: no cervical, thoracic, lumbar midline tenderness. No saddle anesthesia, normal distal neurovascular exam. NEUROLOGICAL: Alert and oriented x3. Normal speech. [cranial nerves II through XII grossly intact]. PSYCH: Normal affect, normal mood. SKIN: Warm, dry, normal turgor. No rashes or lesions noted. Course - Re-evaluation Re-evalutation: On initial evaluation patient has mild tachypnea, extra wheezes, however no rales, rhonchi, hypoxia, or distress. After DuoNeb's, magnesium, Solu-Medrol, symptoms completely resolved. Clear lungs. Chest x-ray is unremarkable. Discussed workup, recommendations, smoking cessation, and primary care follow- up. Discussed return precautions. Given inhaler discharge, prednisone, patient states satisfaction and agreement. - Vital Signs Vital signs: Temp Pulse Resp BP Pulse Ox 99.4 F 78 24 H 146/85 H 94 03/31/18 22:23 03/31/18 22:23 03/31/18 22:23 04/01/18 00:01 04/01/18 01:00 Discharge - Discharge Clinical Impression: Wheezing, Cough, Shortness of breath Condition: Stable Disposition: HOME, SELF-CARE Additional Instructions: Your chest x-ray is normal. Your evaluation is most consistent with bronchitis , inflammation of the upper airway. Take prednisone as prescribed, take albuterol as prescribed, stop smoking. Follow-up with primary care. Return if you worsen including difficulty breathing, fever of 100.4 or greater, or any other concerning or worsening symptoms. Prescriptions: Prednisone 60 mg PO DAILY #15 tablet
[2018-04-01] MEDS: MAGNESIUM SULFATE/D5W 1 GM/100 ML RTUPB IV SCH ×2 (00:13→02:00)
--- NOTE | 2018-04-01 02:16 | RADIOLOGY REPORT (SQ) ---
EXAM DESCRIPTION: XR CHEST 2 VIEWS COMPLETED DATE/TME: 03/31/2018 23:00 CLINICAL HISTORY: 32 years Male, cough, congestion COMPARISON: 10/11/2016. FINDINGS: Adequate lung volume, clear parenchyma, normal cardiac silhouette, and intact bony thorax. IMPRESSION: No acute cardiopulmonary findings.
[2018-04-01] MEDS ORDERED: ALBUTEROL SULFATE HFA (90 MCG/PUFF) 8 GM MDI (1 MDI/ER DISP) IH ONE (02:34)
[2018-04-01 02:51] VITALS: BP 146/85
== END 2018-04-01 03:08 | disposition home or self-care (01) ==
LOC: ER 22:13
DX: R06.02 Shortness of breath (principal); R06.2 Wheezing; R05 Cough; F17.200 Nicotine dependence, unspecified, uncomplicated; Z91.018 Allergy to other foods
CPT/HCPCS: 94640; 99285; 96375; 96365; 96366; 71046; J2930; J3475; J3490 ×2

== ENCOUNTER 2018-09-03 19:04 | Emergency (ER) | payer SELFPAY ==
[2018-09-03] MEDS ORDERED: IPRATROPIUM/ALBUTEROL 0.5-2.5 MG/3 ML AMPUL NEB ONE (20:03)
[2018-09-03] MEDS ORDERED: PREDNISONE 20 MG TABLET PO ONE (20:03)
--- NOTE | 2018-09-03 20:06 | ER Document Report ---
ED Medical Screen (RME) - General Chief Complaint: Chest Congestion Stated Complaint: SHORTNESS OF BREATH Time Seen by Provider: 09/03/18 19:57 Mode of Arrival: Ambulatory Information source: Patient Notes: This is a 33-year-old man with a history of bronchitis, 1 pack/day smoker, presents to the emergency room with cough which is nonproductive, wheezing, shortness of breath. Medications: None Allergies: I TRAVEL OUTSIDE OF THE [place] IN LAST 30 DAYS: No - HPI Onset: Last week Onset/Duration: Gradual Quality of pain: No pain Severity: None Pain Level: Denies Associated Symptoms: Cough (nonproductive), Shortness of breath Exacerbated by: Walking Relieved by: Denies Similar symptoms previously: Yes Recently seen / treated by doctor: No - Related Data Smoking: Cigarettes Frequency of alcohol use: None Drug Abuse: None Allergies/Adverse Reactions: iodine Allergy (Verified 01/30/17 17:01) tomato Allergy (Verified 01/30/17 17:01) Past Medical History - General Information source: Patient - Social History Cigarette use (# per day): Yes - 1 pack/day Chew tobacco use (# tins/day): No Frequency of alcohol use: None Drug Abuse: None Lives with: Family Family history: None - Past Medical History Cardiac Medical History: Reports: None Pulmonary Medical History: Reports: Hx Bronchitis EENT Medical History: Reports: None Neurological Medical History: Reports: Hx Migraine Renal/ Medical History: Denies: Hx Peritoneal Dialysis Surgical Hx: Negative - Immunizations Hx Diphtheria, Pertussis, Tetanus Vaccination: Yes Review of Systems - Review of Systems Constitutional: denies: Chills, Fever EENT: No symptoms reported Cardiovascular: denies: Chest pain, Palpitations, Heart racing Respiratory: Cough, Short of breath, Wheezing Gastrointestinal: No symptoms reported Genitourinary: No symptoms reported Male Genitourinary: No symptoms reported Musculoskeletal: No symptoms reported Skin: No symptoms reported Hematologic/Lymphatic: No symptoms reported Neurological/Psychological: No symptoms reported Physical Exam - Vital signs Vitals: Temp Pulse Resp BP Pulse Ox 97.6 F 83 14 134/83 H 96 09/03/18 19:12 09/03/18 19:12 09/03/18 19:12 09/03/18 19:12 09/03/18 19:12 Notes: Physical exam: GENERAL: Patient is alert and oriented x3, no acute distress HEAD: Atraumatic, normocephalic. EYES: Pupils equal round and reactive to light, extraocular movements intact, sclera anicteric, conjunctiva are normal. ENT: TMs normal, nares patent, oropharynx clear without exudates. Moist mucous membranes. NECK: Normal range of motion, supple without obvious mass or JVD. LUNGS: biLateral wheezing HEART: Regular rate and rhythm without murmurs, rubs or gallops. ABDOMEN: Soft, normoactive bowel sounds. No tenderness to palpation. No guarding, no rebound. No masses appreciated. EXTREMITIES: Normal range of motion, no pitting or edema. No clubbing or cyanosis. NEUROLOGICAL: Cranial nerves II through XII grossly intact. Normal speech, moving all extremities. PSYCH: Normal mood, normal affect. SKIN: Warm, Dry, normal turgor, no rashes or lesions noted. Course - Vital Signs Vital signs: Temp Pulse Resp BP Pulse Ox 97.6 F 83 14 134/83 H 96 09/03/18 19:12 09/03/18 19:12 09/03/18 19:12 09/03/18 19:12 09/03/18 19:12 - Diagnostic Test Radiology reviewed: Image reviewed, Reports reviewed - Chest x-ray shows no infiltrates Doctor's Discharge - Discharge Clinical Impression: Bronchitis with bronchospasm Condition: Stable Disposition: HOME, SELF-CARE Instructions: Bronchitis With Bronchospasm (Wheezing) ([facility]) Additional Instructions: As we discussed, the chest x-ray looked good. Use the inhaler as needed: 2 puffs every 6 hours. Take the prednisone as prescribed: You can start tomorrow, you given today's dose in the ER. Return to the emergency room for worsening shortness of breath, worsening cough or concerns you getting worse. I left the number for the free clinic affiliated with the [facility]: Call them tomorrow and schedule an appointment. It may take a little while to get into [facility], but it is important to establish with them. Prescriptions: Prednisone [Deltasone 20 mg Tablet] 3 tab PO DAILY 5 Days tablet Referrals: [facility] [Provider Group] - Follow up as needed (This is the number the free clinic affiliated with the [facility])
--- NOTE | 2018-09-03 20:41 | RADIOLOGY REPORT (SQ) ---
EXAM DESCRIPTION: XR CHEST 2 VIEWS COMPLETED DATE/TME: 09/03/2018 20:04 CLINICAL HISTORY: 33 years, Male, cough, wheezing, sob Findings: Heart is not enlarged. No consolidation or pleural effusion. No pulmonary edema or pneumothorax. IMPRESSION: No acute disease.
[2018-09-03] MEDS ORDERED: ALBUTEROL SULFATE HFA (90 MCG/PUFF) 8 GM MDI (1 MDI/ER DISP) IH PRN (20:50)
[2018-09-03 21:02] VITALS: BP 146/84
== END 2018-09-03 21:04 | disposition home or self-care (01) ==
LOC: ER 19:04
DX: J20.9 Acute bronchitis, unspecified (principal); R09.89 Other specified symptoms and signs involving the circulatory and respiratory systems; R06.2 Wheezing; F17.210 Nicotine dependence, cigarettes, uncomplicated
CPT/HCPCS: 94640; 99283; 71046; J3490

== ENCOUNTER 2019-02-02 19:04 | Emergency (ER) | payer SELFPAY ==
[2019-02-02 19:09] VITALS: BP 156/83
[2019-02-02] MEDS ORDERED: IPRATROPIUM/ALBUTEROL 0.5-2.5 MG/3 ML AMPUL NEB ONE (19:23)
[2019-02-02] MEDS ORDERED: METHYLPREDNISOLONE INJ 125 MG/2 ML SDV IM ONE (19:23)
[2019-02-02] MEDS ORDERED: ALBUTEROL SULFATE HFA (90 MCG/PUFF) 8 GM MDI (1 MDI/ER DISP) IH ONE (19:23)
--- NOTE | 2019-02-02 19:29 | ER Document Report ---
HPI - HPI Time Seen by Provider: 02/02/19 19:16 Pain Level: 2 Notes: Patient is a 33-year-old male with a history of tobacco abuse who presents complaining of wheeze and dry cough that began over the past couple days. Patient states that he has had issues intermittently for the past 10 months and usually has to come here for some steroids and an inhaler. Patient states that he lives in a tent in the [facility] otherwise. He is eating and drinking without difficulty. He is urinating normally. No other concerns or complaints. Denies any headache, fever, neck pain, URI, sore throat, chest pain, palpitations, syncope, abdominal pain, nausea/vomiting/diarrhea, urinary retention, dysuria, hematuria, or rash. Patient arrived by EMS and did get one breathing treatment which states significant for the symptoms. - ROS Systems Reviewed and Negative: Yes All other systems reviewed and negative Past Medical History - Social History Smoking Status: Current Every Day Smoker Family History: Reviewed & Not Pertinent Pulmonary Medical History: Reports: Hx Bronchitis Neurological Medical History: Reports: Hx Migraine Renal/ Medical History: Denies: Hx Peritoneal Dialysis GI Medical History: Reports: Hx Ulcer - Immunizations Hx Diphtheria, Pertussis, Tetanus Vaccination: Yes Vertical Provider Document - CONSTITUTIONAL Agree With Documented VS: Yes Notes: PHYSICAL EXAMINATION: GENERAL: Well-appearing, well-nourished and in no acute distress. HEAD: Atraumatic, normocephalic. EYES: Pupils equal round and reactive to light, extraocular movements intact, sclera anicteric, conjunctiva are normal. ENT: Nares patent and without discharge. oropharynx clear without exudates. No tonsilar hypertrophy or erythema. Moist mucous membranes. NECK: Normal range of motion, supple without lymphadenopathy LUNGS: expiratory wheezes b/l w/o retraction HEART: Regular rate and rhythm without murmurs, rubs, gallops. Musculoskeletal: FROM to passive/active. Strength 5+/5. Chris neg. No asymmetry to LE's. Extremities: No cyanosis, clubbing, or edema b/l. Peripheral pulses 2+. Capillary refill less than 3 seconds. NEUROLOGICAL: Normal speech, normal gait. PSYCH: Normal mood, normal affect. SKIN: Warm, Dry, normal turgor, no rashes or lesions noted. - INFECTION CONTROL TRAVEL OUTSIDE OF THE [place] IN LAST 30 DAYS: No Course - Re-evaluation Re-evalutation: 02/02/19 Patient is an afebrile, well-hydrated, 33-year-old male who presents with cough and wheeze which I suspect to be viral versus asthma. Vitals are acceptable without significant tachycardia, tachypnea, or hypoxia. PE is otherwise unremarkable aside from wheezing initially noted on expirations which has since improved status post treatment. Chest x-ray unremarkable. Patient is nontoxic- appearing is able to tolerate p.o. without difficulty. Patient states that he is feeling much better and would like to go home. Albuterol inhaler dispense provided today. Low suspicion for any ACS, PE, pneumothorax, pericarditis, dissection, respiratory compromise, severe dehydration, sepsis, meningitis, or other systemic emergent condition at this time. Patient is aware that this condition can change from initial presentation and he needs to monitor symptoms closely and seek medical attention for any acute changes. I will send him home with prednisone. Reviewed the importance of smoking cessation. Recommend cons ervative measures for symptoms. Recheck with your PCM in 3-5 days. Return to the ED with any worsening/concerning symptoms otherwise as reviewed in discharge. Patient is in agreement. - Vital Signs Vital signs: Temp Pulse Resp BP Pulse Ox 98 F 79 20 156/83 H 93 02/02/19 19:07 02/02/19 19:07 02/02/19 19:07 02/02/19 19:07 02/02/19 19:07 Discharge - Discharge Clinical Impression: Cough, Wheeze Condition: Stable Disposition: HOME, SELF-CARE Additional Instructions: Maintain adequate fluid intake Stop smoking Use inhaler and take steroids as directed tylenol/ibuprofen as needed over the counter cold medication as needed for symptoms Humidified air may help Wash your hands regularly Wear a mask when coughing F/u: with your PCM in 2-3 days for a recheck Return to the ED with any fever, altered mental status/behavior, chest pain, palpitations, syncope, headache, neck pain/stiffness, shortness of breath, chest pains, wheezing, drooling, trouble swallowing/breathing, abdominal pain, n/v/d, rash, or worsening/concerning symptoms otherwise. Prescriptions: Prednisone [Deltasone 20 mg Tablet] 3 tab PO DAILY 4 Days tablet Forms: Elevated Blood Pressure, Smoking Cessation Education Referrals: KRISTIN FLOWERS MD [ACTIVE STAFF] - Follow up as needed
--- NOTE | 2019-02-02 19:56 | RADIOLOGY REPORT (SQ) ---
EXAM DESCRIPTION: CHEST 2 VIEWS COMPLETED DATE/TIME: 02/02/2019 7:30 pm REASON FOR STUDY: cough/wheeze COMPARISON: 09/03/2018 EXAM PARAMETERS: NUMBER OF VIEWS: two views TECHNIQUE: Digital Frontal and Lateral radiographic views of the chest acquired. RADIATION DOSE: NA LIMITATIONS: none FINDINGS: LUNGS AND PLEURA: No opacities, masses or pneumothorax. No pleural effusion. MEDIASTINUM AND HILAR STRUCTURES: No masses or contour abnormalities. HEART AND VASCULAR STRUCTURES: Heart normal size. No evidence for failure. BONES: No acute findings. HARDWARE: None in the chest. OTHER: No other significant finding. IMPRESSION: No radiographic evidence of acute cardiopulmonary abnormality. TECHNICAL DOCUMENTATION: JOB ID: [id number] [email or web address]- All Rights Reserved Reading location - IP/workstation name: [email or web address]
== END 2019-02-02 20:14 | disposition home or self-care (01) ==
LOC: ER 19:04
DX: R06.2 Wheezing (principal); R05 Cough; F17.200 Nicotine dependence, unspecified, uncomplicated; Z59.0 Homelessness
CPT/HCPCS: 94640; 99285; 96372; 71046; J2930; J3490; J7620

== ENCOUNTER 2019-05-14 22:54 | Emergency (ER) | payer SELFPAY ==
[2019-05-14] MEDS ORDERED: PREDNISONE 20 MG TABLET PO ONE (23:10)
[2019-05-14] MEDS ORDERED: IPRATROPIUM/ALBUTEROL 0.5-2.5 MG/3 ML AMPUL NEB ONE (23:10)
--- NOTE | 2019-05-14 23:37 | RADIOLOGY REPORT (SQ) ---
EXAM DESCRIPTION: XR CHEST 2 VIEWS COMPLETED DATE/TME: 05/14/2019 23:10 CLINICAL HISTORY: 33 years, Male, difficulty breathing COMPARISON: 02/02/2019 chest NUMBER OF VIEWS: 2 TECHNIQUE: 2 view chest LIMITATIONS: None. FINDINGS: Heart size normal. Lungs clear. No pneumothorax IMPRESSION: Negative chest copyright 2010 [employer]- All Rights Reserved
[2019-05-14] MEDS: ALBUTEROL SULFATE 0.083% NEB 2.5 MG/3 ML AMPUL NEB SCH (23:55)
--- NOTE | 2019-05-15 00:03 | ER Document Report ---
ED Respiratory Problem - General Chief Complaint: Shortness Of Breath Stated Complaint: TROUBLE BREATHING Time Seen by Provider: 05/15/19 00:01 Mode of Arrival: Ambulatory Information source: Patient Notes: HISTORY OF PRESENT ILLNESS: Patient is a 33-year-old male with a past medical history of asthma who presents with 1 week of viral syndrome including congestion with dry cough, now progre ssed to wheezing and chest tightness. Patient reports he smokes about a half pack of cigarettes daily, down from 1 pack a day. Patient reports that he is not officially diagnosed with asthma but it runs in his family and he has never been tested, but he is sure he has it because he has had multiple episodes of bronchitis and usually gets trouble breathing and tightness whenever he is sick. He intended to use rescue inhaler at home but it is empty. Location: Chest Onset: Over 1 week ago Alleviation: None Provocation: Coughing Quality: Tightness Radiation: None Severity: Moderate at worst, currently mild Timing: Persistent History of CAD: None Associated symptoms: Denies fevers or chills, no chest pain, no known sick contacts REVIEW OF SYSTEMS: CONSTITUTIONAL : Denies fever or chills, no sweats. Denies recent illness. EENT: Denies eye, ear, throat, or mouth pain or symptoms. Denies nasal or sinus congestion. CARDIOVASCULAR: Denies chest pain. Denies swelling of the legs. RESPIRATORY: Positive for cough and chest congestion. Positive for shortness of breath and wheezing. GASTROINTESTINAL: Denies abdominal pain. Denies nausea, vomiting, or diarrhea. Denies constipation. GENITOURINARY: Denies difficulty urinating, painful urination, burning, frequency, or blood in urine. MUSCULOSKELETAL: Denies neck or back pain or joint pain or swelling. SKIN: Denies rash or skin lesions. HEMATOLOGIC : Denies easy bruising or bleeding. LYMPHATIC: Denies swollen, enlarged glands. NEUROLOGICAL: Denies altered mental status or loss of consciousness. Denies headache. Denies weakness or paralysis or loss of use of either side. Denies problems with gait or speech. Denies sensory or motor loss. PSYCHIATRIC: Denies anxiety or stress or depression. All other systems reviewed and negative. PHYSICAL EXAMINATION: GENERAL: Well-appearing, well-nourished and in no acute distress. HEAD: Atraumatic, normocephalic. No scalp deformity, depression, or crepitance. EYES: Pupils are 3 mm and equal/round/reactive to light, extraocular movements intact, sclera anicteric, conjunctiva are normal. ENT: Nares patent bilaterally, oropharynx. Moist mucous membranes. No tonsil hypertrophy. NECK: Normal range of motion, supple without lymphadenopathy. LUNGS: Breath sounds present, equal, and clear to auscultation bilaterally. Faint bilateral expiratory wheezes, no crackles or rhonchi.. HEART: Regular rate and rhythm without murmurs, rubs, or gallops. 2+ peripheral pulses. Normal capillary refill. ABDOMEN: Soft, nontender, nondistended. Normoactive bowel sounds. No guarding, no rebound. No masses appreciated. BACK: Normal contour, no midline tenderness. Rectal exam deferred. GENITAL/PELVIC: Deferred. EXTREMITIES: Normal range of motion, no pitting or edema. No cyanosis. NEUROLOGICAL: No focal neurological deficits. Moves all extremities spontaneously and on command. PSYCH: Normal mood, normal affect. No suicidal thoughts/ideations. No homicidal thoughts/ideations. No hallucinations. SKIN: Warm, dry, normal turgor, no rashes or lesions noted. ASSESSMENT AND PLAN: This patient is a 33-year-old male who presents with congestion with wheezing consistent with asthma attack versus acute bronchitis versus pneumonia. 1. Will give oral steroids, nebulizer breathing treatments, and oral azithromycin. 2. Will obtain chest x-ray and reassess. TRAVEL OUTSIDE OF THE [place] IN LAST 30 DAYS: No - HPI Patient complains to provider of: Cough, Short of breath Onset: Last week Duration: Continuous Initiating Event: URI Quality of pain: No pain Severity: Moderate Pain Level: Denies Context: Hx asthma, Smoker Short of Breath: Moderate Cough: Nonproductive Sputum amount: None At home treatment: Bronchodilators Associated symptoms: Cough, Short of breath Similar symptoms previously: No Recently seen / treated by doctor: No - Related Data Allergies/Adverse Reactions: iodine Allergy (Verified 02/02/19 19:04) tomato Allergy (Verified 02/02/19 19:04) Past Medical History - General Information source: Patient - Social History Smoking Status: Current Every Day Smoker Chew tobacco use (# tins/day): No Frequency of alcohol use: None Drug Abuse: None Lives with: Family Family History: Reviewed & Not Pertinent Patient has suicidal ideation: No Patient has homicidal ideation: No - Past Medical History Cardiac Medical History: Reports: None Pulmonary Medical History: Reports: Hx Bronchitis EENT Medical History: Reports: None Neurological Medical History: Reports: Hx Migraine Endocrine Medical History: Reports: None Renal/ Medical History: Reports: None. Denies: Hx Peritoneal Dialysis Malignancy Medical History: Reports None GI Medical History: Reports: Hx Ulcer Musculoskeletal Medical History: Reports None Skin Medical History: Reports None Psychiatric Medical History: Reports: None Traumatic Medical History: Reports: None Infectious Medical History: Reports: None Surgical Hx: Negative Past Surgical History: Reports: None - Immunizations Hx Diphtheria, Pertussis, Tetanus Vaccination: Yes Review of Systems - Review of Systems Constitutional: No symptoms reported EENT: No symptoms reported Cardiovascular: No symptoms reported Respiratory: See HPI, Cough, Short of breath, Wheezing Gastrointestinal: No symptoms reported Genitourinary: No symptoms reported Male Genitourinary: No symptoms reported Musculoskeletal: No symptoms reported Skin: No symptoms reported Hematologic/Lymphatic: No symptoms reported Neurological/Psychological: No symptoms reported -: Yes All other systems reviewed and negative Physical Exam - Vital signs Vitals: Temp Pulse Resp BP Pulse Ox 97.8 F 90 22 H 142/80 H 97 05/14/19 22:56 05/14/19 22:56 05/14/19 22:56 05/14/19 22:56 05/14/19 22:56 Interpretation: Normal Course - Re-evaluation Re-evalutation: 05/15/19 02:39 Chest x-ray is negative. Patient feels much better and lung sounds are clear on reexamination. Will discharge the patient home with strict return precautions and follow-up with primary care. All results were explained to and discussed with the patient, and all questions addressed and answered. The patient voices both understanding and agreeing with the plan. - Vital Signs Vital signs: Temp Pulse Resp BP Pulse Ox 97.8 F 90 22 H 142/80 H 97 05/14/19 22:56 05/14/19 22:56 05/14/19 22:56 05/14/19 22:56 05/14/19 22:56 - Diagnostic Test Radiology reviewed: Image reviewed, Reports reviewed Discharge - Discharge Clinical Impression: Acute bronchitis Qualifiers: Bronchitis organism: unspecified organism Qualified Code(s): J20.9 - Acute bronchitis, unspecified Condition: Good Disposition: HOME, SELF-CARE Instructions: Bronchitis ([facility]) Additional Instructions: You have been evaluated in the Emergency Department for difficulty breathing related to acute bronchitis. While here, you had steroids and were given nebulizer treatments and it is now safe to be discharged home. Please follow-up with your primary physician as instructed in one week to be rechecked. Return to the Emergency Department if you experience worsening breathing, chest pain, high fevers, or any other concerning symptoms. Prescriptions: Fluticasone/Salmeterol [Advair 250-50 Diskus 14 Dose/Diskus] 1 inh IH Q12H #1 inhaler Methylprednisolone [Medrol Dosepack (4 mg/Tab) 21 Tab/Dosepak] 4 mg PO ASDIR PRN #21 tab.ds.pk PRN Reason: Azithromycin [Zithromax 250 mg Tablet] 250 mg PO ASDIR PRN #6 tablet PRN Reason: Print Language: Frisian
[2019-05-15] MEDS ORDERED: AZITHROMYCIN 250 MG TABLET PO ONE (00:45)
[2019-05-15] MEDS ORDERED: ALBUTEROL SULFATE HFA (90 MCG/PUFF) 8 GM MDI (1 MDI/ER DISP) IH PRN (00:45)
[2019-05-15] MEDS: ALBUTEROL SULFATE 0.083% NEB 2.5 MG/3 ML AMPUL NEB SCH (01:02)
[2019-05-15 02:57] VITALS: BP 133/74
== END 2019-05-15 02:57 | disposition home or self-care (01) ==
LOC: ER 22:54
DX: J20.9 Acute bronchitis, unspecified (principal); R05 Cough; R07.89 Other chest pain; R06.2 Wheezing; R06.02 Shortness of breath; Z82.5 Family history of asthma and other chronic lower respiratory diseases; R09.89 Other specified symptoms and signs involving the circulatory and respiratory systems; F17.200 Nicotine dependence, unspecified, uncomplicated; Z91.018 Allergy to other foods
CPT/HCPCS: 71046; J7512; J3490; J7620

== ENCOUNTER 2019-05-16 14:25 | Emergency (ER) | payer SELFPAY ==
--- NOTE | 2019-05-16 15:15 | ER Document Report ---
ED Medical Screen (RME) - General Chief Complaint: Headache Stated Complaint: MIGRAINE Time Seen by Provider: 05/16/19 15:12 Mode of Arrival: Ambulatory Information source: Patient Notes: 33-year-old male presented to ED for complaint history of migraines with strokelike symptoms. He states he was having the symptoms before without a headache and now the symptoms are getting better but the headache is starting to get worse. He does have equal movement of both arms and legs equal strength in both arms and legs he states he does have some numbness in his right fingers but has full range of motion to both hands. He has equal eye movement. He states he has been having these symptoms off and on since elementary school. He states he does not have a neurologist. He states when he gets a headache she usually comes to emergency room get Toradol Compazine and Benadryl which helps his headache he states he does smoke 1/2 pack a day does not drink does occasionally use marijuana which helps his other pains. I have greeted and performed a rapid initial assessment of this patient. A comprehensive ED assessment and evaluation of the patient, analysis of test results and completion of medical decision making process will be conducted by an additional ED providers. TRAVEL OUTSIDE OF THE [place] IN LAST 30 DAYS: No - Related Data Allergies/Adverse Reactions: iodine Allergy (Verified 02/02/19 19:04) tomato Allergy (Verified 02/02/19 19:04) Past Medical History - Social History Family history: None Pulmonary Medical History: Reports: Hx Bronchitis Neurological Medical History: Reports: Hx Migraine Renal/ Medical History: Denies: Hx Peritoneal Dialysis GI Medical History: Reports: Hx Ulcer - Immunizations Hx Diphtheria, Pertussis, Tetanus Vaccination: Yes Physical Exam - Vital signs Vitals: Temp Pulse Resp BP Pulse Ox 97.9 F 86 18 155/93 H 94 05/16/19 14:30 05/16/19 14:30 05/16/19 14:30 05/16/19 14:30 05/16/19 14:30 Course - Vital Signs Vital signs: Temp Pulse Resp BP Pulse Ox 97.9 F 86 18 155/93 H 94 05/16/19 14:30 05/16/19 14:30 05/16/19 14:30 05/16/19 14:30 05/16/19 14:30
[2019-05-16] MEDS ORDERED: BUTALB/ACETAMINOPHEN/CAFFEINE 1 TAB EACH PO ONE (16:23)
--- NOTE | 2019-05-16 18:37 | RADIOLOGY REPORT (SQ) ---
EXAM DESCRIPTION: CT HEAD WITHOUT COMPLETED DATE/TIME: 05/16/2019 5:17 pm REASON FOR STUDY: headache, neck pain COMPARISON: 03/08/2015 TECHNIQUE: Axial images acquired through the brain without intravenous contrast. Images reviewed wi th bone, brain and subdural windows. Additional sagittal and coronal reconstructions were generated. Images stored on PACS. All CT scanners at this facility use dose modulation, iterative reconstruction, and/or weight based d osing when appropriate to reduce radiation dose to as low as reasonably achievable (ALARA). [facility]: Dose Right [facility]: CareDose [facility]: Dose Right [facility]: Teradose 4D [facility]: [employer] Technologies RADIATION DOSE: CT Rad equipment meets quality standard of care and radiation dose reduction techniq ues were employed. CTDIvol: 53.2 mGy. DLP: 1070 mGy-cm. mGy. LIMITATIONS: None. FINDINGS: VENTRICLES: Normal size and contour. CEREBRUM: No masses. No hemorrhage. No midline shift. No evidence for acute infarction. Normal gra y/white matter differentiation. No areas of low density in the white matter. CEREBELLUM: No masses. No hemorrhage. No alteration of density. No evidence for acute infarction. EXTRAAXIAL SPACES: No fluid collections. No masses. ORBITS AND GLOBE: No intra- or extraconal masses. Normal contour of globe without masses. CALVARIUM: No fracture. PARANASAL SINUSES: Marked mucoperiosteal thickening in the maxillary sinuses, left more than right. Mucoperiosteal changes in the ethmoid air cells and frontal sinuses. SOFT TISSUES: No mass or hematoma. OTHER: No other significant finding. IMPRESSION: Sinus disease with no acute intracranial imaging findings. EVIDENCE OF ACUTE STROKE: NO. COMMENT: Quality ID # [id number]: Final reports with documentation of one or more dose reduction techniques (e.g., Automated exposure control, adjustment of the mA and/or kV according to patient size, use of iterative reconstruction technique) TECHNICAL DOCUMENTATION: JOB ID: [id number] [employer]- All Rights Reserved Reading location - IP/workstation name: [email or web address]
--- NOTE | 2019-05-16 18:38 | RADIOLOGY REPORT (SQ) ---
EXAM DESCRIPTION: CT CERVICAL SPINE WITHOUT COMPLETED DATE/TIME: 05/16/2019 5:17 pm REASON FOR STUDY: headache, neck pain COMPARISON: None. TECHNIQUE: Axial images acquired through the cervical spine without intravenous contrast. Images re viewed with lung, soft tissue and bone windows. Reconstructed coronal and sagittal MPR images review ed. Images stored on PACS. All CT scanners at this facility use dose modulation, iterative reconstruction, and/or weight based d osing when appropriate to reduce radiation dose to as low as reasonably achievable (ALARA). [facility]: Dose Right [facility]: CareDose [facility]: Dose Right [facility]: Teradose 4D [facility]: [employer] RADIATION DOSE: CT Rad equipment meets quality standard of care and radiation dose reduction techniq ues were employed. CTDIvol: 22.2 mGy. DLP: 449 mGy-cm. mGy. LIMITATIONS: None. FINDINGS: ALIGNMENT: Anatomic. MINERALIZATION: Normal. VERTEBRAL BODIES: No fractures or dislocation. DISCS: No significant disc disease. FACETS, LATERAL MASSES, POSTERIOR ELEMENTS: No fractures. No dislocation. No acute findings. HARDWARE: None in the spine. VISUALIZED RIBS: No fractures. LUNG APICES AND SOFT TISSUES: No significant or acute findings. OTHER: No other significant finding. IMPRESSION: NO ACUTE OR SIGNIFICANT FINDINGS IN THE CERVICAL SPINE. TECHNICAL DOCUMENTATION: JOB ID: [id number] Quality ID # [id number]: Final reports with documentation of one or more dose reduction techniques (e.g., Au tomated exposure control, adjustment of the mA and/or kV according to patient size, use of iterative reconstruction technique) 2010 [employer]- All Rights Reserved Reading location - IP/workstation name: [email or web address]
--- NOTE | 2019-05-16 18:46 | ER Document Report ---
HPI - HPI Time Seen by Provider: 05/16/19 15:12 Pain Level: 0 Notes: Patient is an otherwise healthy 33-year-old male presenting to the emergency department with a headache. Patient reports he has a long-standing history of migraines and gets strokelike symptoms with his migraines. He states today his headache is a 2/5. He states that he is very concerned that may be something wrong in his brain or his neck as he does have associated pain in his head that radiates down into his neck. Patient reports that he thinks he could possibly have a brain tumor. He states this thought has been keeping him up for the last several days. - CONSTITUTIONAL Constitutional: DENIES: Fever, Chills - NEURO Neurology: REPORTS: Headache - REPRODUCTIVE Reproductive: DENIES: : Past Medical History - General Information source: Patient - Social History Smoking Status: Current Every Day Smoker Chew tobacco use (# tins/day): No Frequency of alcohol use: None Drug Abuse: Marijuana Family History: Reviewed & Not Pertinent Patient has suicidal ideation: No Patient has homicidal ideation: No Pulmonary Medical History: Reports: Hx Bronchitis Neurological Medical History: Reports: Hx Migraine Renal/ Medical History: Denies: Hx Peritoneal Dialysis GI Medical History: Reports: Hx Ulcer - Immunizations Hx Diphtheria, Pertussis, Tetanus Vaccination: Yes Vertical Provider Document - CONSTITUTIONAL Notes: PHYSICAL EXAMINATION: GENERAL: Well-appearing, well-nourished and in no acute distress. HEAD: Atraumatic, normocephalic. No nuchal rigidity. EYES: Pupils equal round and reactive to light, extraocular movements intact, sclera anicteric, conjunctiva are normal. ENT: Nares patent, oropharynx clear without exudates. Moist mucous membranes. NECK: Normal range of motion, supple without lymphadenopathy LUNGS: Breath sounds clear to auscultation bilaterally and equal. No wheezes rales or rhonchi. HEART: Regular rate and rhythm without murmurs ABDOMEN: Soft, nontender, nondistended abdomen. No guarding, no rebound. No masses appreciated. Musculoskeletal: Normal range of motion, no pitting or edema. No cyanosis. NEUROLOGICAL: Cranial nerves grossly intact. Normal speech, normal gait. Normal sensory, motor exams PSYCH: Normal mood, normal affect. SKIN: Warm, Dry, normal turgor, no rashes or lesions noted. - INFECTION CONTROL TRAVEL OUTSIDE OF THE [place] IN LAST 30 DAYS: No Course - Re-evaluation Re-evalutation: Patient appears well, nontoxic is alert, interactive and answering all questions. Patient will be given medications here in the emergency department for his headache. Patient is requesting CT scans of his head and neck stating that he had an injury several years ago and has never had this checked out. He is concerned that he has possibly a broken neck or a brain tumor. He states that the panic and fear of this keeps him up nearly every night. CT scans were negative for any acute findings as outlined below. Patient does report relief of his headache after administration of Fioricet here in the emergency department he will be discharged home in stable condition with plans [facility] care with a primary care physician. Cervical Spine CT 05/16/19 16:23 IMPRESSION: NO ACUTE OR SIGNIFICANT FINDINGS IN THE CERVICAL SPINE. Head CT 05/16/19 16:23 IMPRESSION: Sinus disease with no acute intracranial imaging findings. EVIDENCE OF ACUTE STROKE: NO. - Vital Signs Vital signs: Temp Pulse Resp BP Pulse Ox 97.9 F 86 18 155/93 H 94 05/16/19 14:30 05/16/19 14:30 05/16/19 14:30 05/16/19 14:30 05/16/19 14:30 Discharge - Discharge Clinical Impression: Headache Qualifiers: Headache type: unspecified Headache chronicity pattern: unspecified pattern Intractability: not intractable Qualified Code(s): R51 - Headache Condition: Stable Disposition: HOME, SELF-CARE Additional Instructions: Your CT scans were negative today. You have been seen in the Emergency Department (ED) for a headache. Please use Tylenol (acetaminophen) or Motrin (ibuprofen) as needed for symptoms, but only as written on the box. As we have discussed, please follow up with your primary care doctor as soon as possible regarding today's ED visit and your headache symptoms. Call your doctor or return to the ED if you have a worsening headache, sudden and severe headache, confusion, slurred speech, facial droop, weakness or numbn ess in any arm or leg, extreme fatigue, or other symptoms that concern you.
[2019-05-16 19:00] VITALS: BP 139/91
== END 2019-05-16 19:01 | disposition home or self-care (01) ==
LOC: ER 14:25
DX: R51 Headache (principal); F17.200 Nicotine dependence, unspecified, uncomplicated
CPT/HCPCS: 70450; 72125; J3490